=== PATIENT | female | born 1990 | race Two or more races ===

== ENCOUNTER 2020-03-17 06:34 | Inpatient (IN) | payer MEDICAID ==
[~2020-03-17] VITALS: Ht 162.6 cm; Wt 57.7 kg
[2020-03-17] MEDS ORDERED: RINGERS SOLUTION,LACTATED 1,000 ML IV SCH (08:07)
[2020-03-17] MEDS ORDERED: RINGERS SOLUTION,LACTATED 1,000 ML IV PRN (08:07)
[2020-03-17 08:15] VITALS: BP 129/73
[2020-03-17] MEDS ORDERED: METOCLOPRAMIDE HCL 5 MG/ML 2 ML VIAL IVP PRN (08:15)
[2020-03-17] MEDS ORDERED: CITRIC ACID/SODIUM CITRATE 30 ML SOLUTION UDCUP PO PRN (08:15)
[2020-03-17] MEDS ORDERED: OXYTOCIN 20 UNITS/LACT RINGERS 1,000 ML IV SCH (08:17)
[2020-03-17] MEDS ORDERED: OXYTOCIN 30 UNITS/LACT RINGERS 500 ML IV ONE (08:21)
[2020-03-17] MEDS ORDERED: LANOLIN 7 GM OINTMENT TP PRN (08:30)
[2020-03-17] MEDS ORDERED: ACETAMINOPHEN/CODEINE 300-30 MG TABLET PO PRN (08:30)
[2020-03-17] MEDS ORDERED: GLYCERIN/WITCH HAZEL LEAF 40 PADS JAR TP PRN (08:30)
[2020-03-17] MEDS ORDERED: FentaNYL CITRATE-PF 100 MCG/2 ML VIAL IVP PRN (08:30)
[2020-03-17] MEDS ORDERED: SENNA/DOCUSATE SODIUM 8.6-50 MG TABLET PO PRN (08:30)
[2020-03-17] MEDS ORDERED: METHYLERGONOVINE MALEATE 0.2 MG/ML VIAL IM PRN (08:30)
[2020-03-17] MEDS ORDERED: MEASLES/MUMPS/RUBELLA VACCINE, LIVE 0.5 ML/VIAL SQ ONE (08:30)
[2020-03-17] MEDS ORDERED: IBUPROFEN 600 MG TABLET PO PRN (08:30)
[2020-03-17] MEDS ORDERED: BENZOCAINE 20%/MENTHOL 56 GM SPRAY CANISTER TP PRN (08:30)
[2020-03-17] MEDS ORDERED: LIDOCAINE/PF 1% 30 ML VIAL INJ PRN (08:30)
[2020-03-17 09:25] LABS: BASOPHILS % (AUTO) 0.5 % (0.0-2.0); EOSINOPHILS % (AUTO) 0.2 % (1.0-6.0); HEMATOCRIT 26.7 % (36-46); HEMOGLOBIN 8.3 g/dL (12.0-16.0); LYMPHOCYTES # (AUTO) 0.8 K/uL (1.0-4.8); LYMPHOCYTES % (AUTO) 6.3 % (22.0-44.0); MEAN CORPUSCULAR HEMOGLOBIN 22.7 pg (26.0-34.0); MEAN CORPUSCULAR VOLUME 73 fL (80-100); MONOCYTES # (AUTO) 0.4 K/uL (0.1-1.0); MONOCYTES % (AUTO) 3.6 % (2.0-9.0); NEUTROPHILS # (AUTO) 10.8 K/uL (1.8-7.7); PLATELET COUNT (AUTO)-OB 354 K/uL (150-450); RED BLOOD CELL COUNT(AUTO) 3.64 MIL/uL (4.00-5.20); RED CELL DISTRIBUTION WIDTH 17.3 % (11.5-14.5)
[2020-03-17 09:30] LABS: NEUTROPHILS % (AUTO) 89.4 % (40.0-70.0)
[2020-03-17 11:15] LABS: APPEARANCE,URINE CLOUDY (CLEAR); BILIRUBIN,URINE NEGATIVE (NEGATIVE); GLUCOSE, URINE (UA) NEGATIVE (NEGATIVE); KETONES,URINE NEGATIVE (NEGATIVE); LEUKOCYTE ESTERASE ,URINE TRACE (NEGATIVE); NITRATE,URINE NEGATIVE (NEGATIVE); OCCULT BLOOD,URINE LARGE (NEGATIVE); PROTEIN,URINE TRACE (NEGATIVE); UROBILINOGEN,URINE 0.2 mg/dL (<=1.0)
[2020-03-17 12:05] LABS: BACTERIA,URINE None Seen /HPF (None Seen); RBC,URINE Full Field /HPF (0-2); WBC,URINE 0-2 /HPF (0-5)
[2020-03-17] MEDS ORDERED: OXYGEN THERAPY IH SCH (20:00)
[2020-03-17] MEDS: MAGNESIUM HYDROXIDE SUSPENSION 30 ML UDCUP PO PRN (20:58)
[2020-03-18 07:27] LABS: BASOPHILS % (AUTO) 0.8 % (0.0-2.0); EOSINOPHILS % (AUTO) 1.4 % (1.0-6.0); HEMATOCRIT 22.9 % (36-46); HEMOGLOBIN 7.4 g/dL (12.0-16.0); LYMPHOCYTES % (AUTO) 21.8 % (22.0-44.0); MEAN CORPUSCULAR HEMOGLOBIN 23.8 pg (26.0-34.0); MEAN CORPUSCULAR HGB CONC 32.5 G/dL (31.0-37.0); MEAN CORPUSCULAR VOLUME 73 fL (80-100); MONOCYTES # (AUTO) 0.4 K/uL (0.1-1.0); MONOCYTES % (AUTO) 4.5 % (2.0-9.0); NEUTROPHILS # (AUTO) 6.5 K/uL (1.8-7.7); NEUTROPHILS % (AUTO) 71.5 % (40.0-70.0); PLATELET COUNT (AUTO)-OB 327 K/uL (150-450); RED BLOOD CELL COUNT(AUTO) 3.12 MIL/uL (4.00-5.20); RED CELL DISTRIBUTION WIDTH 17.4 % (11.5-14.5)
[2020-03-18] MEDS: MAGNESIUM HYDROXIDE SUSPENSION 30 ML UDCUP PO PRN ×2 (07:52→22:01)
[2020-03-18] MEDS ORDERED: IRON SUCROSE COMPLEX 100 MG in SODIUM CHLORIDE 0.9% 100 ML IV SCH (13:00)
[2020-03-18] MEDS: FERROUS SULFATE 325 MG EC TABLET PO SCH (17:44)
[2020-03-19] MEDS: FERROUS SULFATE 325 MG EC TABLET PO SCH (09:38)
[2020-03-19] MEDS: MAGNESIUM HYDROXIDE SUSPENSION 30 ML UDCUP PO PRN (09:38)
[2020-03-19] MEDS ORDERED: IBUP-2070 PO (10:22)
[2020-03-19] MEDS ORDERED: DOCU-275 PO (10:23)
[2020-03-19] MEDS ORDERED: FERR-89 PO (10:24)
== END 2020-03-19 13:05 | disposition home or self-care (01) | DRG 560 ==
LOC: EMS 06:34 → 4S 07:10
PROVIDERS: ADMIT Obstetrics & Gynecology; ATTEND Obstetrics & Gynecology
PROC: 10E0XZZ Delivery of Products of Conception, External Approach (ICD-10-PCS; principal; 2020-03-17)
PROC: 0W8NXZZ Division of Female Perineum, External Approach (ICD-10-PCS; 2020-03-17)
DX: O60.14X0 Preterm labor third trimester with preterm delivery third trimester, not applicable or unspecified (principal); O76 Abnormality in fetal heart rate and rhythm complicating labor and delivery; Z20.828 Contact with and (suspected) exposure to other viral communicable diseases; Z37.0 Single live birth; Z3A.36 36 weeks gestation of pregnancy; Z28.21 Immunization not carried out because of patient refusal
CPT/HCPCS: 80307; 80349; 86592; 86762; 86850; 86900; 86901; 87340; 87491; 87591; J1756; J7050